=== PATIENT | male | born 1965 | race Two or more races ===

== ENCOUNTER 2020-12-13 11:52 | Emergency (ER) | payer OTHER ==
[~2020-12-13] VITALS: Ht 170.2 cm; Wt 72.6 kg
[2020-12-13 13:02] LABS: Alanine Aminotransfer (ALT/SGP 29 U/L (12-78); Albumin, Blood 4.1 g/dL (3.4-5.0); Albumin/Globulin Ratio 1.2 (0.8-1.8); Alk Phos 57 U/L (50-136); Anion Gap 6 mmol/L (6-16); Aspartate Aminotrans (AST/SGOT 25 U/L (12-37); Bilirubin, Total 0.5 mg/dL (0.1-1.0); Blood Urea Nitrogen 17 mg/dL (8-24); Bun/Creatinine Ratio 16.8 (12.0-20.0); CO2, Blood 27 mmol/L (21-32); Calcium, Blood 9.3 mg/dL (8.5-10.1); Chloride, Blood 102 mmol/L (98-108); Creatinine, Blood 1.01 mg/dL (0.60-1.20); Globulin, Blood 3.4 g/dL (2.2-4.0); Glomerular Filtration Rate >60 (60-); Glucose, Blood 135 mg/dL (70-99); Potassium, Blood 3.5 mmol/L (3.5-5.5); Sodium, Blood 135 mmol/L (136-145); Total Protein, Blood 7.5 g/dL (6.4-8.2)
[2020-12-13] MEDS ORDERED: LISI10 PO (14:42)
[2020-12-13] MEDS ORDERED: FAMO20 PO (14:42)
[2020-12-13] MEDS ORDERED: ESOMEPRAZOLE MA40 MG PO (14:42)
[2020-12-13 14:45] LABS: BASOPHILS ABSOLUTE AUTO 0.06 K/mm3 (0.00-0.23); BASOPHILS PERCENT AUTO 1 % (0-2); EOSINOPHILS ABSOLUTE AUTO 0.03 K/mm3 (0.00-0.68); EOSINOPHILS PERCENT AUTO 0 % (0-6); Hematocrit 40.4 % (37.0-53.0); Hemoglobin 13.8 g/dL (13.5-17.5); IMMATURE GRAN ABSOLUTE AUTO 0.04 K/mm3 (0.00-0.10); IMMATURE GRAN PERCENT AUTO 0 % (0-1); LYMPHOCYTES ABSOLUTE AUTO 2.28 K/mm3 (0.84-5.20); LYMPHOCYTES PERCENT AUTO 18 % (21-46); MONOCYTES PERCENT AUTO 6 % (4-13); Mean Corpuscular HGB 31.7 pg (26.0-34.0); Mean Corpuscular HGB Conc 34.2 g/dL (31.5-36.5); Mean Corpuscular Volume 93 fL (80-100); Mean Platelet Volume 9.4 fL (9.1-12.4); NEUTROPHILS ABSOLUTE AUTO 9.69 K/mm3 (1.96-9.15); NEUTROPHILS PERCENT AUTO 75 % (41-73); Platelet Count 278 K/mm3 (150-400); RDW Coefficient Variation 13.4 % (11.7-14.2); RDW Standard Deviation 45.9 fL (35.1-46.3); Red Blood Cell Count 4.36 M/mm3 (4.30-5.90)
[2020-12-13] MEDS ORDERED: Roxicodone5 MG PO (15:01)
== END 2020-12-13 15:12 | disposition home or self-care (01) ==
LOC: ER 11:52
PROVIDERS: Emergency Medicine
DX: S52.92XA Unspecified fracture of left forearm, initial encounter for closed fracture (principal); S70.02XA Contusion of left hip, initial encounter; Z79.899 Other long term (current) drug therapy
CPT/HCPCS: 25605; 36415; 72070; 72100; 73070; 73100; 73502; 76000; 80053; 85025; 96374-59; 96375-59; 99152; 99284-25; J1170; J2704; J3010; J7030

== ENCOUNTER 2020-12-21 12:45 | Day surgery (SDC) | payer OTHER ==
[~2020-12-21] VITALS: Ht 167.6 cm; Wt 72.8 kg
[~2020-12-21 12:45] MED LIST: ESOMEPRAZOLE MA40 MG PO; FAMO20 PO; LISI10 PO; Roxicodone5 MG PO
--- NOTE | 2020-12-21 14:03 | NUR ---
Ambulatory in Day Surgery History, Chart, Medications and Allergies reviewed before start of procedure. Lungs clear T/O to Auscultation. Patient confirms NPO status and agrees with scheduled surgery. Pre-Op teaching done. Pt verbalizes understanding. Patient States Post-Procedure ride home has been arranged.
--- NOTE | 2020-12-21 17:00 | NUR ---
12/21/20 Maddy Nails PATIENT'S LEFT ARM WAS PREWASHED WITH CHLORHEXIDINE BEFORE THE PREP WAS PERFORMED.
--- NOTE | 2020-12-21 18:02 | NUR ---
REPORT TO BARBI DENG RN.
--- NOTE | 2020-12-21 18:20 | NUR ---
1815- PT TAKING PO W/O NAUSEA. CHEERFUL. STATES PAIN DOWN TO A 5/10.
--- NOTE | 2020-12-21 18:43 | NUR ---
1830-IV DC'D WITH CATH INTACT. PT UP AND DRESSED WITH MINIMAL ASSIST.
--- NOTE | 2020-12-21 18:56 | NUR ---
1845-PT DC'D TO HOME ACC. BY HIS DAUGHTER.GOOD CAP REFILL,MOVEMENT OF LEFT FINGERS.SLING AND ICE ARE ON LEFT FOREARM
--- NOTE | 2020-12-22 16:19 | NUR ---
SASKIA PT RECEIVED 50MCG OF FENTANYL IV BY ME. FORGOT TO WASTE THE OTHER 50MCG IN THE PYXIS. BARBI DENG RN WITNESSED WASTE.
== END 2020-12-21 22:53 | disposition home or self-care (01) ==
LOC: ORSCMMR 12:45
PROVIDERS: Orthopaedic Surgery
PROC: 0PSJ04Z Reposition Left Radius with Internal Fixation Device, Open Approach (ICD-10-PCS; principal; 2020-12-21 16:00)
DX: S52.572A Other intraarticular fracture of lower end of left radius, initial encounter for closed fracture (principal); S52.612A Displaced fracture of left ulna styloid process, initial encounter for closed fracture; I10 Essential (primary) hypertension; E11.9 Type 2 diabetes mellitus without complications; K21.9 Gastro-esophageal reflux disease without esophagitis; Z79.899 Other long term (current) drug therapy
CPT/HCPCS: A9270; C1713; J0690; J1100; J2250; J2405; J2704; J3010; J7120